=== PATIENT | female | born 1980 ===

== ENCOUNTER 2018-11-06 18:38 | Emergency (ER) | payer MEDICAID ==
--- NOTE | 2018-11-06 20:22 | ED PDOC ---
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 Patient states that she began having left eye redness with itching and yellowish discharge this morning and she also has been having nasal congestion and headaches for the past few days. She admits to subjective fever 2 days ago but none since, and further states that she has been having lower and upper back pains for the past few days. Patient reports that she has chronic lower back problems but they worsened over the last few days. She denies chills, shortness of breath, chest pain, nausea vomiting, and diarrhea. Patient further denies numbness, tingling in feet, and gait instability. Patient admits she took ibuprofen 200 mg 5 hours ago. PMD: none provided Past Medical History Reviewed: Historical Data, Nursing Documentation, Vital Signs Vital Signs: Last Vital Signs Temp 98.3 F 11/06/18 18:54 Pulse 88 11/06/18 18:54 Resp 18 11/06/18 18:54 BP 126/84 11/06/18 18:54 Pulse Ox 100 11/06/18 18:54 - Medical History PMH: Anxiety, Depression Other PMH: right eye blindness - Surgical History Surgical History: No Surg Hx - Family History Family History: States: Unknown Family Hx - Social History Current smoker - smoking cessation education provided: No Alcohol: None Drugs: Denies - Home Medications Home Medications: Ambulatory Orders Medication Instructions Recorded Cyclobenzaprine [Cyclobenzaprine 10 mg PO Q8 PRN 5 Days tab 11/06/18 HCl] Fluticasone Propionate [Flonase] 1 spr NS BID PRN 5 Days bottle 11/06/18 Ibuprofen [Motrin Tab] 600 mg PO Q6 PRN 5 Days tab 11/06/18 Polymyxin/Trimethoprim Sulfate 1 drop OU Q3 7 Days bottle 11/06/18 [Polytrim Ophth Soln] - Allergies Allergies/Adverse Reactions: Allergies Allergy/AdvReac Type Severity Reaction Status Date / Time No Known Allergies Allergy Verified 11/06/18 18:54 Review of Systems ROS Statement: Except As Marked, All Systems Reviewed And Found Negative Constitutional: Positive for: Fever. Negative for: Chills Eyes: Positive for: Pain, Redness, Other (discharge ) ENT: Positive for: Nose Congestion Cardiovascular: Negative for: Chest Pain Respiratory: Negative for: Shortness of Breath Gastrointestinal: Negative for: Nausea, Vomiting, Diarrhea Musculoskeletal: Positive for: Back Pain Neurological: Positive for: Headache. Negative for: Weakness, Numbness Physical Exam - Reviewed Nursing Documentation Reviewed: Yes Vital Signs Reviewed: Yes - Physical Exam Appears: Positive for: Non-toxic, No Acute Distress, Uncomfortable Head Exam: Positive for: ATRAUMATIC, NORMAL INSPECTION, NORMOCEPHALIC Skin: Positive for: Normal Color, Warm, Dry Eye Exam: Positive for: EOMI, PERRL (to left eye ), Conjunctival injection (to left eye with yellow discharge ) ENT: Positive for: TM Is/Are (obscured by cerumen bilaterally ), Other (swollen nasal turbinates, mild pain elicited to palpation of maxillary sinus). Negative for: Pharyngeal Erythema, Tonsillar Exudate, Tonsillar Swelling Neck: Positive for: Normal, Painless ROM, Supple Cardiovascular/Chest: Positive for: Regular Rate, Rhythm. Negative for: Murmur Respiratory: Positive for: Normal Breath Sounds. Negative for: Respiratory Distress Back: Positive for: Other (tenderness to parathoracic spinal area bilaterally: Normal range of motion to back of flexion and extension ). Negative for: L CVA Tenderness, R CVA Tenderness Extremity: Positive for: Normal ROM. Negative for: Deformity, Swelling, Other (sensation intact and equal strength to all extremities) Neurologic/Psych: Positive for: Alert, Oriented. Negative for: Motor/Sensory Deficits - ECG O2 Sat by Pulse Oximetry: 100 (RA) Pulse Ox Interpretation: Normal Medical Decision Making Medical Decision Making: Time: 19:56 Plan: --ED urine --Flexeril 10 mg PO --Flonase --Motrin 600 mg PO --Rapid flu --Rx for conjunctivitis Re-evaluated prior to d/c: back pain has improved, HARPER is no longer present. Stable for d/c home with prescriptions. ------- Scribe Attestation: Documented by Taryn Riggins, acting as a scribe for Filomena Akhtar PA-C. Provider Scribe Attestation: All medical record entries made by the Scribe were at my direction and personally dictated by me. I have reviewed the chart and agree that the record accurately reflects my personal performance of the history, physical exam, medical decision making, and the department course for this patient. I have also personally directed, reviewed, and agree with the discharge instructions and disposition. Disposition - Clinical Impression Clinical Impression: Conjunctivitis, bacterial, Sinus headache, Low back pain - Patient ED Disposition Is Patient to be Admitted: No - Disposition Referrals: [facility] [Outside] Disposition: Routine/Home Disposition Time: 21:33 Condition: STABLE Additional Instructions: Take Cyclobenzaprine and Ibuprofen as needed for back pain/muscle aches. Take full course of antibiotic eye drop for pink eye. Flonase as needed for nasal congestion. Return to ER if you develop fevers or worsening pain despite medications. Avoid driving or operating heavy machinery while taking Flexeril (Cyclobenzaprine). Prescriptions: Cyclobenzaprine [Cyclobenzaprine HCl] 10 mg PO Q8 PRN 5 Days tab PRN Reason: Pain, Moderate (4-7) Fluticasone Propionate [Flonase] 1 spr NS BID PRN 5 Days bottle PRN Reason: Nasal Congestion Ibuprofen [Motrin Tab] 600 mg PO Q6 PRN 5 Days tab PRN Reason: Pain, Moderate (4-7) Polymyxin/Trimethoprim Sulfate [Polytrim Ophth Soln] 1 drop OU Q3 7 Days bottle Instructions: Conjunctivitis ([place]) (DC), Sinus Headache (DC) Forms: [employer] (Macedonian) Print Language: BELARUSIAN
[2018-11-06 21:34] VITALS: BP 132/78; PULSE 84; RESP 16; TEMP 98.2
[2018-11-07 00:13] VITALS: O2SAT 100
== END 2018-11-06 21:33 | disposition home or self-care (01) ==
LOC: H.ER 18:38
DX: M54.5 Low back pain (principal); R51 Headache; H10.023 Other mucopurulent conjunctivitis, bilateral

== ENCOUNTER 2018-12-20 19:54 | Emergency (ER) | payer MEDICAID, OTHER ==
[2018-12-20 20:15] VITALS: BP 142/95; PULSE 102; RESP 18; O2SAT 100
--- NOTE | 2018-12-20 20:30 | ED PDOC ---
HPI: General Adult Time Seen by Provider: 12/20/18 20:23 Chief Complaint (Nursing): Abnormal Skin Integrity Chief Complaint (Provider): Abnormal Skin Integrity History Per: Patient History/Exam Limitations: no limitations Current Symptoms Are (Timing): Still Present Additional Complaint(s): 38 year old female presents to the ED complaining of lumps to her right inguinal area. Patient reports she has been getting lumps throughout her body. Patient is also complaining of back pain radiating down the left leg. She states she has pain when she gets up and has taken Motrin without relief. PMD: none provided Past Medical History Reviewed: Historical Data, Nursing Documentation, Vital Signs Vital Signs: Last Vital Signs Temp 98.8 F 12/20/18 20:14 Pulse 102 H 12/20/18 20:14 Resp 18 12/20/18 20:14 BP 142/95 H 12/20/18 20:14 Pulse Ox 100 12/20/18 20:14 - Medical History PMH: Anxiety, Depression - Family History Family History: States: Unknown Family Hx - Home Medications Home Medications: Ambulatory Orders Medication Instructions Recorded Cyclobenzaprine [Cyclobenzaprine 10 mg PO Q8 PRN 5 Days tab 11/06/18 HCl] Fluticasone Propionate [Flonase] 1 spr NS BID PRN 5 Days bottle 11/06/18 Ibuprofen [Motrin Tab] 600 mg PO Q6 PRN 5 Days tab 11/06/18 Polymyxin/Trimethoprim Sulfate 1 drop OU Q3 7 Days bottle 11/06/18 [Polytrim Ophth Soln] Cyclobenzaprine [Flexeril] 10 mg PO TID #27 tab 12/20/18 Diclofenac Potassium 50 mg PO BID #20 tablet 12/20/18 - Allergies Allergies/Adverse Reactions: Allergies Allergy/AdvReac Type Severity Reaction Status Date / Time No Known Allergies Allergy Verified 12/20/18 20:13 Review of Systems ROS Statement: Except As Marked, All Systems Reviewed And Found Negative Musculoskeletal: Positive for: Back Pain Skin: Positive for: Other (Lumps in groin area) Physical Exam - Reviewed Nursing Documentation Reviewed: Yes Vital Signs Reviewed: Yes - Physical Exam Appears: Positive for: Non-toxic, No Acute Distress Head Exam: Positive for: ATRAUMATIC, NORMOCEPHALIC Skin: Positive for: Normal Color, Warm, Dry Eye Exam: Positive for: Normal appearance Neck: Positive for: Normal, Painless ROM Cardiovascular/Chest: Positive for: Regular Rate, Rhythm Respiratory: Positive for: Normal Breath Sounds. Negative for: Wheezing, Respiratory Distress Pelvic Exam: Positive for: Other (1cm single swollen inguinal node on the right side) Back: Positive for: Muscle Spasm (left side paraspinal spasms). Negative for: Vertebral Tenderness Extremity: Positive for: Other ((+) straight right leg raise to 30 degrees; (-) straight left leg raise) - ECG O2 Sat by Pulse Oximetry: 100 (RA) Pulse Ox Interpretation: Normal Medical Decision Making Medical Decision Making: Initial Plan: --Urine test --Flexeril 10mg PO --Toradol 60mg IM --Tylenol 650mg PO --Urinalysis Scribe Attestation: Documented by Prem Albarado acting as a scribe for Will MELARA. Provider Scribe Attestation: All medical record entries made by the Scribe were at my direction and personally dictated by me. I have reviewed the chart and agree that the record accurately reflects my personal performance of the history, physical exam, medical decision making, and the department course for this patient. I have also personally directed, reviewed, and agree with the discharge instructions and disposition. Disposition - Clinical Impression Clinical Impression: Low back pain, Sciatic leg pain - Patient ED Disposition Is Patient to be Admitted: No Doctor Will See Patient In The: Office Counseled Patient/Family Regarding: Diagnosis, Need For Followup, Rx Given - Disposition Referrals: [facility] [Outside] [facility] [Outside] Disposition: Routine/Home Disposition Time: 21:56 Condition: STABLE Prescriptions: Cyclobenzaprine [Flexeril] 10 mg PO TID #27 tab Diclofenac Potassium 50 mg PO BID #20 tablet Instructions: Low Back Pain in Adults, Sciatica (DC) Forms: [facility] (Italian)
[2018-12-20 21:52] LABS: SQUAMOUS EPITHIAL 3 /hpf (0-5); URINE BACTERIA RARE (<OCC); URINE BILIRUBIN NEGATIVE (NEGATIVE); URINE BLOOD NEGATIVE (NEGATIVE); URINE CLARITY SLIGHTY-CLOUDY (Clear); URINE COLOR YELLOW (YELLOW); URINE GLUCOSE (UA) NEG (NEGATIVE); URINE LEUKOCYTE ESTERASE NEG Leu/uL (Negative); URINE PROTEIN NEGATIVE (NEGATIVE); URINE UROBILINOGEN 0.2-1.0 mg/dL (0.2-1.0)
[2018-12-20 21:57] VITALS: TEMP 98.2
== END 2018-12-20 22:01 | disposition home or self-care (01) ==
LOC: H.ER 19:54
DX: M54.5 Low back pain (principal); M79.606 Pain in leg, unspecified; Z86.59 Personal history of other mental and behavioral disorders
CPT/HCPCS: 81003; 81025; 96372; 99283; J1885

== ENCOUNTER 2018-12-26 22:36 | Emergency (ER) | payer OTHER ==
[2018-12-26 22:46] VITALS: O2SAT 98
--- NOTE | 2018-12-27 00:03 | ED PDOC ---
HPI: General Adult Time Seen by Provider: 12/26/18 22:56 Chief Complaint (Nursing): Groin Pain History Per: Patient Additional Complaint(s): Pt. states for the past week she's had a painful swelling to the R groin. States she was seen in ED last week for same complaint plus lower back pain. Lower back pain resolved but swelling persists. States she is scheduled to see a new PMD tomorrow but came to ED for her son and wanted to check out the swelling as well. Denies dysuria, hematuria, vaginal discharge, frequency, pelvic pian. Past Medical History Reviewed: Historical Data, Nursing Documentation, Vital Signs Vital Signs: Last Vital Signs Temp 98.0 F 12/26/18 22:45 Pulse 95 H 12/26/18 22:45 Resp 16 12/26/18 22:45 BP 138/85 12/26/18 22:45 Pulse Ox 98 12/26/18 22:45 - Medical History PMH: Anxiety, Depression - Surgical History Surgical History: No Surg Hx - Family History Family History: States: No Known Family Hx, Unknown Family Hx - Home Medications Home Medications: Ambulatory Orders Medication Instructions Recorded Cyclobenzaprine [Cyclobenzaprine 10 mg PO Q8 PRN 5 Days tab 11/06/18 HCl] Fluticasone Propionate [Flonase] 1 spr NS BID PRN 5 Days bottle 11/06/18 Ibuprofen [Motrin Tab] 600 mg PO Q6 PRN 5 Days tab 11/06/18 Polymyxin/Trimethoprim Sulfate 1 drop OU Q3 7 Days bottle 11/06/18 [Polytrim Ophth Soln] Cyclobenzaprine [Flexeril] 10 mg PO TID #27 tab 12/20/18 Diclofenac Potassium 50 mg PO BID #20 tablet 12/20/18 Naproxen [Naprosyn] 500 mg PO BID PRN #10 tab 12/27/18 - Allergies Allergies/Adverse Reactions: Allergies Allergy/AdvReac Type Severity Reaction Status Date / Time egg Allergy RASH Verified 12/26/18 22:45 nut - unspecified Allergy RASH Verified 12/26/18 22:45 shrimp Allergy RASH Verified 12/26/18 22:45 Review of Systems ROS Statement: Except As Marked, All Systems Reviewed And Found Negative Physical Exam - Physical Exam Appears: Positive for: Well, Non-toxic, No Acute Distress Skin: Positive for: Normal Color, Warm. Negative for: Rash Eye Exam: Positive for: Normal appearance Lymphatic: Positive for: Inguinal Node Tenderness (R inguinal area with small mobile mass that is non-erythematous, non-fluctuant, and non-tender) Neurologic/Psych: Positive for: Alert, Oriented (x3) - Laboratory Results Result Diagrams: 12/27/18 00:43 12/27/18 00:43 - ECG O2 Sat by Pulse Oximetry: 98 - Progress ED Course And Treament: Labs, toradol 30mg IV ordered. Disposition - Clinical Impression Clinical Impression: Lymphadenopathy - Patient ED Disposition Is Patient to be Admitted: No - Disposition Referrals: [facility] [Outside] Disposition: Routine/Home Disposition Time: :22 Condition: STABLE Additional Instructions: FOLLOW UP WITH YOUR DOCTOR FOR FURTHER EVALUATION YOU HAD PREVIOUSLY SCHEDULED RETURN TO ED IMMEDIATELY IF SYMPTOMS WORSEN NATE SARAVIA, thank you for letting us take care of you today. Your provider was Brandee Guzman MD and you were treated for SHIVERS, COUGH, ABD PAIN. The emergency medical care you received today was directed at your acute symptoms. If you were prescribed any medication, please fill it and take as directed. It may take several days for your symptoms to resolve. Return to the Emergency Department if your symptoms worsen, do not improve, or if you have any other problems. Please contact your doctor or call one of the physicians/clinics you have been referred to that are listed on the Patient Visit Information form that is included in your discharge packet. Bring any paperwork you were given at discharge with you along with any medications you are taking to your follow up visit. Our treatment cannot replace ongoing medical care by a primary care provider outside of the emergency department. Thank you for allowing the [facility] team to be part of your care today. If you had an X-Ray or CT scan: A Radiologist will review the ED reading if any change in treatment is needed we will contact you. If you had a blood, urine, or wound culture: It will take several days for the results, if any change in treatment is needed we will contact you. If you had an STI test: It will take 48 hours for the results. Please call after 1 week if you have not heard back. Prescriptions: Naproxen [Naprosyn] 500 mg PO BID PRN #10 tab PRN Reason: Pain Instructions: Lymphadenitis (DC) Forms: [facility] (Danish)
[2018-12-27 00:58] LABS: BASO # 0.1 K/uL (0.0-0.2); BASO % 1.2 % (0.0-2.0); EOS # 0.2 K/uL (0.0-0.7); HEMOGLOBIN 12.6 g/dL (12.0-16.0); LYMPH % 18.9 % (20.0-40.0); MEAN CELL VOLUME 78.9 fl (81.0-99.0); MEAN CORPUSCULAR HEMOGLOBIN 26.1 pg (27.0-31.0); MEAN PLATELET VOLUME 8.8 fl (7.2-11.7); MONO # 0.8 K/uL (0.0-0.8); MONO % 7.4 % (0.0-10.0); NEUT # 7.3 K/uL (1.8-7.0); NEUT % 70.5 % (50.0-75.0); NRBC % 0.1 % (0.0-0.0); RBC 4.83 Mil/uL (3.80-5.20); RED CELL DISTRIBUTION WIDTH 14.3 % (11.5-14.5); WHITE BLOOD COUNT 10.3 K/uL (4.8-10.8)
[2018-12-27 01:09] LABS: ALB/GLOB RATIO 1.1 (1.0-2.1)
[2018-12-27 01:16] LABS: SQUAMOUS EPITHIAL 2 /hpf (0-5); URINE BACTERIA OCC (<OCC); URINE BILIRUBIN NEGATIVE (NEGATIVE); URINE BLOOD NEGATIVE (NEGATIVE); URINE CLARITY SLIGHTY-CLOUDY (Clear); URINE COLOR YELLOW (YELLOW); URINE GLUCOSE (UA) NEG (NEGATIVE); URINE LEUKOCYTE ESTERASE NEG Leu/uL (Negative); URINE PROTEIN 30 mg/dL (NEGATIVE); URINE UROBILINOGEN 0.2-1.0 mg/dL (0.2-1.0)
[2018-12-27 01:17] LABS: ALT/SGPT 39 U/L (9-52); AST/SGOT 32 U/L (14-36); BLOOD UREA NITROGEN 14 mg/dl (7-17); GFR NON-AFRICAN AMERICAN > 60
[2018-12-27 01:37] VITALS: BP 112/69; PULSE 86; RESP 19; TEMP 97.6
== END 2018-12-27 01:47 | disposition home or self-care (01) ==
LOC: H.ER 22:36
DX: R59.0 Localized enlarged lymph nodes (principal)
CPT/HCPCS: 80053; 81003; 81025; 85025; 96374; 99283; J1885